=== PATIENT | female | born 1990 | race Caucasian/White ===

== ENCOUNTER 2016-10-25 21:30 | Emergency (ER) | payer BC ==
[2016-10-25 21:50] VITALS: O2SAT 96
[2016-10-25] MEDS ORDERED: HYDROCOD/APAP 5/325 (ER DISP) #3 TAB PO ONE (22:14)
--- NOTE | 2016-10-25 22:20 | RAD ---
EXAM DESCRIPTION: Ribs,Left 3 Views CLINICAL HISTORY: left rib pain after injury 3 days ago. COMPARISON: None FINDINGS: Three views of the left ribs were submitted. There is no discrete displaced rib fracture. There is no pneumothorax. Focal opacity projecting over the left T12 rib could represent a superimposed calcification versus artifact. If indicated additional images of the lower ribs recommended. Bone mineralization is within normal limits. There is no radiopaque foreign body material. IMPRESSION: No acute fracture or dislocation. Electronically signed by: Tin Huffman MD 10/25/2016 10:18 PM CDT
[2016-10-25] MEDS: IBUPROFEN 200 MG TAB PO ONE ×2 (22:34→22:40)
--- NOTE | 2016-10-25 22:39 | ED.PDOC ---
History of Present Illness - General Chief Complaint: Upper Extremity Injury Stated Complaint: left breast and rib pain Time Seen by Provider: 10/25/16 21:47 Source: patient Exam Limitations: no limitations - History of Present Illness Initial Comments: the patient is a 26-year-old female presenting to the emergency room secondary to chest pain on the left side of her chest after someone fell on top of her yesterday. It hurts when she twists and turns and raises her arm and takes a deep breath. She does not have shortness of breath and has had no fevers or productive sputum. Pain has gotten worse. She is tender to palpation. I feel no crepitus on exam. I feel no gross deformity. Her pectoralis muscle on the left is sore. Timing/Duration: 24 hours Severity: moderate Improving Factors: immobilization Worsening Factors: movement Associated Symptoms: chest pain Allergies/Adverse Reactions: Allergies NO KNOWN ALLERGY Allergy (Verified 10/25/16 21:50) Home Medications: Ambulatory Orders Ursexnetqwoxg-Nfqd-Lrtzkuwort [Fioricet] 1 ea PO Q8H PRN #21 tab 10/25/16 Review of Systems - Review of Systems Constitutional: States: no symptoms reported EENTM: States: no symptoms reported Respiratory: States: no symptoms reported Cardiology: States: chest pain Gastrointestinal/Abdominal: States: no symptoms reported Genitourinary: States: no symptoms reported Musculoskeletal: States: see HPI Skin: States: no symptoms reported Neurological: States: no symptoms reported All other Systems: No Change from Baseline Past Medical History (General) - Patient Medical History Hx Hypertension: Yes Hx Diabetes: No Surgical History: appendectomy, tonsillectomy - Vaccination History Hx Influenza Vaccination: No - Female History Patient is a Female of Child Bearing Age (10 -59 yrs old): Yes Patient : No Family Medical History - Family History Father Family History: Unknown Physical Exam - Physical Exam General Appearance: Alert, No apparent distress Eye Exam: bilateral normal Ears, Nose, Throat: normal ENT inspection Neck: full range of motion Respiratory: lungs clear, normal breath sounds, no respiratory distress, no accessory muscle use, other - left-sided chest wall is uncomfortable to palpation Cardiovascular/Chest: normal peripheral pulses, regular rate, rhythm, no edema Peripheral Pulses: radial,right: 2+, radial,left: 2+ Gastrointestinal/Abdominal: non tender, soft Rectal Exam: deferred Back Exam: normal inspection, no CVA tenderness Extremity: normal range of motion, non-tender, normal inspection, no pedal edema , normal capillary refill Neurologic: alert, normal mood/affect, oriented x 3 Skin Exam: normal color Comments: Vital Signs - 24 hr 10/25/16 21:46 Temperature 98.3 F Pulse Rate [ 98 H Left] Respiratory 20 Rate Blood Pressure 158/99 [Left Arm] O2 Sat by Pulse 96 Oximetry Progress - Progress Progress: 10/25/16 22:39 the patient is a 26-year-old female presenting after blunt trauma to the left side of her chest several days ago. Symptoms are consistent with pleurisy. The patient can take Aleve 2 tablets twice a day with food for the next 3-4 days to help reduce discomfort. She does need to try and twist and turn and take deep breaths to help reduce discomfort as well as to keep the lungs well aerated and prevent infection. X-rays of the ribs on that side show no overt fracture and no pneumothorax. Cracked ribs are a possibility. The patient will be written for Fioricet for as needed use. ER warnings were given for any acute worsening. Departure - Departure Clinical Impression: Pleurisy without effusion Disposition: Discharge to Home or Self Care Condition: Fair Departure Forms: ED Discharge - Pt. Copy, Patient Portal Self Enrollment Instructions: DI for Pleurisy Diet: regular diet Activity: increase activity as tolerated Prescriptions: Fjgydixjmuphq-Oimy-Jgstpydwfr [Fioricet] 1 ea PO Q8H PRN #21 tab PRN Reason: Pain Home Medications: Ambulatory Orders Wbmnpiodxrmqq-Ffuk-Vqdbtynjdb [Fioricet] 1 ea PO Q8H PRN #21 tab 10/25/16 Additional Instructions: the patient is a 26-year-old female presenting after blunt trauma to the left side of her chest several days ago. Symptoms are consistent with pleurisy. The patient can take Aleve 2 tablets twice a day with food for the next 3-4 days to help reduce discomfort. She does need to try and twist and turn and take deep breaths to help reduce discomfort as well as to keep the lungs well aerated and prevent infection. X-rays of the ribs on that side show no overt fracture and no pneumothorax. Cracked ribs are a possibility. The patient will be written for Fioricet for as needed use. ER warnings were given for any acute worsening.
[2016-10-25 22:49] VITALS: BP 152/89
[2016-10-25 22:53] VITALS: TEMP 98
== END 2016-10-25 22:53 | disposition home or self-care (01) ==
LOC: ER 21:30
DX: R09.1 Pleurisy (principal); I10 Essential (primary) hypertension; W03.XXXA Other fall on same level due to collision with another person, initial encounter